=== PATIENT | female | born 1990 | race American Indian/Alaskan Native ===

== ENCOUNTER 2020-07-16 13:48 | Outpatient (CLI) | payer MEDICAID ==
[2020-07-16 14:14] VITALS: BP 119/72
[2020-07-16] MEDS ORDERED: LACTATED RINGERS 500 ML IV ONE (15:00)
[2020-07-16 15:13] LABS: Bacteria,Urine 1+ /HPF (Negative); Bilirubin,Urine NEG (Negative); Blood,Urine NEG (Negative); Color,Urine Yellow (Yellow); Mucus,Urine 1+ /HPF; Protein,Urine <15 mg/dL mg/dL (Negative)
== END 2020-07-16 15:35 | disposition home or self-care (01) ==
LOC: TRG 13:48 → APU 13:50 → TRG 15:35
PROVIDERS: ATTEND Obstetrics & Gynecology
DX: O26.892 Other specified pregnancy related conditions, second trimester (principal); R10.31 Right lower quadrant pain; Z3A.20 20 weeks gestation of pregnancy
CPT/HCPCS: 59025; 81001